=== PATIENT | male | born 1945 | race Caucasian/White ===

== ENCOUNTER → 2018-08-08 | Outpatient (CLI) | payer MEDICARE, BC | END | disposition home or self-care (01) | LOC: RAD 08:51 | PROVIDERS: ATTEND Registered Nurse | DX: M50.23 Other cervical disc displacement, cervicothoracic region (principal); M25.78 Osteophyte, vertebrae; M43.22 Fusion of spine, cervical region; M48.02 Spinal stenosis, cervical region | CPT/HCPCS: 72050; 72141 ==